=== PATIENT | male | born 1955 | race Caucasian/White ===

== ENCOUNTER 2023-11-01 08:51 | Inpatient (IN) | payer MEDICARE, OTHER ==
[~2023-11-01] VITALS: Ht 177.8 cm; Wt 86.6 kg
[~2023-11-01 08:51] MED LIST: ALPR-624 PO; LOSA-415 PO; METO-477 PO; NIFE-34 PO; OMEP20CA15 PO
[2023-11-01 11:01] LABS: BASOPHILS # (AUTO) 0.1 X10'3 (0-0.2); BASOPHILS % (AUTO) 1.1 % (0-1); EOSINOPHILS # (AUTO) 0.7 X10'3 (0-0.9); EOSINOPHILS % (AUTO) 8.1 % (0-6); HEMATOCRIT 36.9 % (42.0-52.0); HEMOGLOBIN 11.9 g/dl (14.0-17.9); LYMPHOCYTES # (AUTO) 1.3 X10'3 (1.1-4.8); LYMPHOCYTES % (AUTO) 15.5 % (21-51); MEAN CORPUSCULAR HGB CONC 32.2 g/dL (33.0-36.5); MEAN CORPUSCULAR VOLUME 90.1 FL (78-98); MONOCYTES % (AUTO) 12.3 % (2-12); NEUTROPHILS # (AUTO) 5.2 X10'3 (1.8-7.7); PLATELET COUNT 437 X10'3 (140-440); RED BLOOD COUNT 4.09 X10'6 (4.70-6.10); RED CELL DISTRIBUTION WIDTH 14.9 % (11.5-14.5); WHITE BLOOD COUNT 8.3 X10'3 (4.5-11.0)
[2023-11-01] MEDS: heparin 10,000 units/1 ML INJ IV ONE (11:11)
[2023-11-01] MEDS ORDERED: iohexol 350MG/ML 100ml bottle IV ONE (11:17)
[2023-11-01] MEDS: ondansetron/PF 4mg/2ml inj IV ONE (11:32)
[2023-11-01] MEDS: morphine 2 MG/ML inj. syringe IV ONE (11:35)
[2023-11-01] MEDS: heparin 25,000 UNIT/250ml bag 250 ML IV PRN (11:40)
[2023-11-01 11:57] LABS: ALANINE AMINOTRANSFERASE 53 U/L (12-78); ALBUMIN 2.5 G/DL (3.4-5.0); ALBUMIN/GLOBULIN RATIO 0.6 (1.1-1.5); ALKALINE PHOSPHATASE 112 IU/L (46-116); ANION GAP 4 (8-16); ASPARTATE AMINO TRANSFERASE 37 U/L (10-37); BILIRUBIN,TOTAL 0.4 MG/DL (0.1-1.0); BLOOD UREA NITROGEN 15 MG/DL (7-18); BUN/CREATININE RATIO 11.3 (10.0-20.0); CALCIUM 8.5 MG/DL (8.5-10.1); CHLORIDE 105 MMOL/L (99-107); CREATININE 1.33 MG/DL (0.60-1.10); GLUCOSE 102 MG/DL (70-104); POTASSIUM 4.7 MMOL/L (3.5-5.1); SODIUM 139 MMOL/L (135-145); TOTAL CARBON DIOXIDE 29.9 MMOL/L (24-32); TOTAL PROTEIN 6.9 G/DL (6.4-8.2); eCRCL 54 ML/MIN; eGFR 53 ML/MIN
[2023-11-01] MEDS ORDERED: magnesium Cl slow-release 64mg tablet PO PRN (14:20)
[2023-11-01] MEDS ORDERED: magnesium 2GM in 50ml NS 50 ML IV PRN (14:20)
[2023-11-01] MEDS ORDERED: ondansetron/PF 4mg/2ml inj IV PRN (14:20)
[2023-11-01] MEDS ORDERED: potassium Cl 40MEQ/1/2NS 520ml 520 ML IV PRN (14:20)
[2023-11-01] MEDS ORDERED: magnesium hydroxide 30ml (MOM) UD suspension PO PRN (14:20)
[2023-11-01] MEDS ORDERED: potassium Cl 20 mEq SR tablet PO PRN ×2 (14:20)
[2023-11-01] MEDS ORDERED: magnesium 4gm in 100ml NS 100 ML IV PRN (14:20)
[2023-11-01] MEDS: heparin 10,000 units/1 ML INJ IV PRN (16:12)
[2023-11-01 17:47] VITALS: BP 92/61; PULSE 75; RESP 17; TEMP 98.1; O2SAT 98
[2023-11-01 18:00] VITALS: BP 100/62; PULSE 75; RESP 17; TEMP 98.1; O2SAT 98
[2023-11-01 20:00] VITALS: RESP 16; O2SAT 96
[2023-11-01] MEDS: K and/or MAG REPLACEMENT MC SCH (20:00)
[2023-11-01] MEDS: docusate sod 100mg capsule PO SCH (20:49)
[2023-11-01 22:00] VITALS: BP 126/86; PULSE 67; RESP 16; TEMP 98.1; O2SAT 95
[2023-11-01] MEDS: mag hydrox/Alum hydrox/simeth 30ml oral suspension PO PRN (22:34)
[2023-11-02] VITALS (8 sets, daily range): BP systolic 115–142; BP diastolic 76–91; PULSE 72–89; RESP 16–19; TEMP 97.3–98.8; O2SAT 95–98
[2023-11-02 02:23] LABS: BASOPHILS # (AUTO) 0.1 X10'3 (0-0.2); BASOPHILS % (AUTO) 1.3 % (0-1); EOSINOPHILS # (AUTO) 0.8 X10'3 (0-0.9); EOSINOPHILS % (AUTO) 9.9 % (0-6); HEMATOCRIT 35.2 % (42.0-52.0); HEMOGLOBIN 11.7 g/dl (14.0-17.9); LYMPHOCYTES # (AUTO) 2.3 X10'3 (1.1-4.8); LYMPHOCYTES % (AUTO) 29.4 % (21-51); MEAN CORPUSCULAR HEMOGLOBIN 29.7 PG (27.0-31.0); MEAN CORPUSCULAR HGB CONC 33.1 g/dL (33.0-36.5); MEAN CORPUSCULAR VOLUME 89.6 FL (78-98); MEAN PLATELET VOLUME 6.1 FL (7.4-10.4); MONOCYTES # (AUTO) 0.8 X10'3 (0-0.9); NEUTROPHILS # (AUTO) 3.8 X10'3 (1.8-7.7); NEUTROPHILS % (AUTO) 49.4 % (42-75); PLATELET COUNT 407 X10'3 (140-440); RED BLOOD COUNT 3.93 X10'6 (4.70-6.10); RED CELL DISTRIBUTION WIDTH 14.6 % (11.5-14.5); WHITE BLOOD COUNT 7.7 X10'3 (4.5-11.0)
[2023-11-02 02:30] LABS: INR 1.1 INR; PROTHROMBIN TIME 11.9 SECONDS (9.0-12.0)
[2023-11-02 02:32] LABS: ALANINE AMINOTRANSFERASE 46 U/L (12-78); ALBUMIN 2.3 G/DL (3.4-5.0); ALBUMIN/GLOBULIN RATIO 0.5 (1.1-1.5); ALKALINE PHOSPHATASE 110 IU/L (46-116); ANION GAP 3 (8-16); ASPARTATE AMINO TRANSFERASE 33 U/L (10-37); BILIRUBIN,TOTAL 0.3 MG/DL (0.1-1.0); BLOOD UREA NITROGEN 14 MG/DL (7-18); BUN/CREATININE RATIO 10.8 (10.0-20.0); CALCIUM 8.3 MG/DL (8.5-10.1); CHLORIDE 102 MMOL/L (99-107); GLUCOSE 98 MG/DL (70-104); MAGNESIUM 1.9 MG/DL (1.5-2.4); PHOSPHORUS 4.3 MG/DL (2.3-4.5); POTASSIUM 4.1 MMOL/L (3.5-5.1); SODIUM 136 MMOL/L (135-145); TOTAL CARBON DIOXIDE 31.2 MMOL/L (24-32); TOTAL PROTEIN 6.5 G/DL (6.4-8.2); eCRCL 55 ML/MIN; eGFR 55 ML/MIN
[2023-11-02] MEDS: heparin 25,000 UNIT/250ml bag 250 ML IV PRN (04:04)
[2023-11-02] MEDS: acetaminophen 325mg tablet PO PRN (10:01)
[2023-11-02] MEDS ORDERED: ALPRAZolam 0.25mg tablet PO PRN (11:35)
[2023-11-02] MEDS: pantoprazole 40mg Tablet.DR PO SCH (11:41)
[2023-11-02] MEDS: MESSAGE TO NURSING IV ONE ×2 (15:45→22:50)
[2023-11-02] MEDS: ALPRAZolam 0.25mg tablet PO PRN (17:09)
[2023-11-02] MEDS: oxyCODONE/APAP 5-325mg tablet PO PRN (21:14)
[2023-11-03 02:00] VITALS: BP 115/87; PULSE 70; RESP 16; TEMP 97; O2SAT 94
[2023-11-03 05:05] LABS: INR 1.1 INR; PROTHROMBIN TIME 11.9 SECONDS (9.0-12.0)
[2023-11-03 05:10] LABS: BASOPHILS # (AUTO) 0.1 X10'3 (0-0.2); BASOPHILS % (AUTO) 0.9 % (0-1); EOSINOPHILS # (AUTO) 0.8 X10'3 (0-0.9); EOSINOPHILS % (AUTO) 10.3 % (0-6); HEMATOCRIT 35.2 % (42.0-52.0); HEMOGLOBIN 11.7 g/dl (14.0-17.9); LYMPHOCYTES # (AUTO) 2.2 X10'3 (1.1-4.8); LYMPHOCYTES % (AUTO) 28.7 % (21-51); MEAN CORPUSCULAR HEMOGLOBIN 29.5 PG (27.0-31.0); MEAN CORPUSCULAR HGB CONC 33.3 g/dL (33.0-36.5); MEAN CORPUSCULAR VOLUME 88.8 FL (78-98); MEAN PLATELET VOLUME 6.6 FL (7.4-10.4); MONOCYTES # (AUTO) 0.9 X10'3 (0-0.9); MONOCYTES % (AUTO) 11.4 % (2-12); NEUTROPHILS # (AUTO) 3.8 X10'3 (1.8-7.7); NEUTROPHILS % (AUTO) 48.7 % (42-75); PLATELET COUNT 409 X10'3 (140-440); RED BLOOD COUNT 3.96 X10'6 (4.70-6.10); RED CELL DISTRIBUTION WIDTH 14.7 % (11.5-14.5); WHITE BLOOD COUNT 7.8 X10'3 (4.5-11.0)
[2023-11-03 05:13] LABS: ALANINE AMINOTRANSFERASE 38 U/L (12-78); ALBUMIN 2.3 G/DL (3.4-5.0); ALBUMIN/GLOBULIN RATIO 0.6 (1.1-1.5); ALKALINE PHOSPHATASE 89 IU/L (46-116); ANION GAP 6 (8-16); ASPARTATE AMINO TRANSFERASE 23 U/L (10-37); BILIRUBIN,TOTAL 0.4 MG/DL (0.1-1.0); BLOOD UREA NITROGEN 16 MG/DL (7-18); BUN/CREATININE RATIO 11.2 (10.0-20.0); CALCIUM 8.6 MG/DL (8.5-10.1); CHLORIDE 106 MMOL/L (99-107); CREATININE 1.43 MG/DL (0.60-1.10); GLUCOSE 99 MG/DL (70-104); MAGNESIUM 2.1 MG/DL (1.5-2.4); PHOSPHORUS 4.2 MG/DL (2.3-4.5); POTASSIUM 4.2 MMOL/L (3.5-5.1); SODIUM 141 MMOL/L (135-145); TOTAL CARBON DIOXIDE 28.6 MMOL/L (24-32); TOTAL PROTEIN 6.4 G/DL (6.4-8.2); eCRCL 50 ML/MIN; eGFR 49 ML/MIN
[2023-11-03 06:00] VITALS: BP 127/88; PULSE 71; RESP 14; TEMP 98.4; O2SAT 96
[2023-11-03] MEDS: MESSAGE TO NURSING IV ONE (06:37)
[2023-11-03 10:00] VITALS: BP 129/88; PULSE 98; RESP 15; TEMP 98.8; O2SAT 96
[2023-11-03] MEDS ORDERED: APIX5TAB3 PO ×2 (10:09→18:14)
[2023-11-03 11:15] VITALS: RESP 15; O2SAT 96
[2023-11-03] MEDS: apixaban 5mg tablet PO SCH (11:23)
[2023-11-03 14:00] VITALS: BP 126/86; PULSE 90; RESP 16; TEMP 98; O2SAT 96
[2023-11-04 17:57] LABS: PROTEIN S, FREE 128 % (61-136); PROTEIN S, TOTAL 127 % (60-150)
[2023-11-05 07:30] LABS: ANTITHROMBIN ACTIVITY 95 % (75-135); ANTITHROMBIN ANTIGEN 97 % (72-124)
[2023-11-10] MEDS ORDERED: apixaban 5mg tablet PO SCH (08:00)
== END 2023-11-03 16:51 | disposition home or self-care (01) | DRG 299 ==
LOC: ER 08:52 → ED HOLD 14:20 → PCU 3S 17:08
PROVIDERS: ADMIT Internal Medicine; ATTEND Internal Medicine
PROC: B32T1ZZ Computerized Tomography (CT Scan) of Left Pulmonary Artery using Low Osmolar Contrast (ICD-10-PCS; principal; 2023-11-01)
PROC: B3201ZZ Computerized Tomography (CT Scan) of Thoracic Aorta using Low Osmolar Contrast (ICD-10-PCS; 2023-11-01)
PROC: B32S1ZZ Computerized Tomography (CT Scan) of Right Pulmonary Artery using Low Osmolar Contrast (ICD-10-PCS; 2023-11-01)
DX: I82.403 Acute embolism and thrombosis of unspecified deep veins of lower extremity, bilateral (principal); I26.94 Multiple subsegmental thrombotic pulmonary emboli without acute cor pulmonale; I10 Essential (primary) hypertension; K21.9 Gastro-esophageal reflux disease without esophagitis; Z79.899 Other long term (current) drug therapy; Z90.49 Acquired absence of other specified parts of digestive tract; Z88.8 Allergy status to other drugs, medicaments and biological substances
CPT/HCPCS: 36415; 71045; 71275; 80053; 81479; 83735; 83891; 83894; 83898; 84100; 84484; 85025; 85300; 85301; 85303; 85305; 85306; 85610; 85730; 86146; 86147; 93306; 93970; 99285; A4615; G0378; J1644; J2270; J2405; J3490; Q9967